=== PATIENT | female | born 1980 | race African-American/Black ===

== ENCOUNTER 2017-09-19 05:10 | Emergency (ER) | payer SELFPAY ==
[~2017-09-19] VITALS: Ht 165.1 cm; Wt 110.7 kg
[2017-09-19 05:10] VITALS: BP 139/79
[~2017-09-19 05:10] MED LIST: AMOX500C PO; CEPH500T PO; HYDR-2758 PO; HYDR-79 PO; HYDR-971 PO; IBUP800T19 PO
--- NOTE | 2017-09-19 05:13 | ED.ADGEN ---
Past History Past Medical History: No Pertinent History Past Surgical History: Tonsillectomy Smoking: Cigarettes Alcohol Use: None Drug Use: None Adult General Chief Complaint Chief Complaint ".. I got really bad dental pain,. Rt sided. my jaw..my ear.. I got this fx tooth.. and I am going to be seen at dental school..." HPI HPI Patient is a 37 year old female who presents with above hx and complaints of right lower molar pain at site of decay and fractured tooth #30. No pointing abscess. No trismus. No history immunosuppression. No history of trauma. Patient reportedly has follow-up at dental school. Patient has completed a course of Keflex . Review of Systems Review of Systems Constitutional: Denies fever or chills [] Eyes: Denies change in visual acuity, redness, or eye pain [] HENT: Denies nasal congestion or sore throat []complaints of dental pain Respiratory: Denies cough or shortness of breath [] Cardiovascular: No additional information not addressed in HPI [] GI: Denies abdominal pain, nausea, vomiting, bloody stools or diarrhea [] : Denies dysuria or hematuria [] Musculoskeletal: Denies back pain or joint pain [] Integument: Denies rash or skin lesions [] Neurologic: Denies headache, focal weakness or sensory changes [] Endocrine: Denies polyuria or polydipsia [] All other systems were reviewed and found to be within normal limits, except as documented in this note. Family History Family History Noncontributory Current Medications Current Medications Current Medications Medications (Trade) Dose Ordered Sig/Ab Start Time Stop Time Status Last Admin Dose Admin Ceftriaxone Sodium (Rocephin Im) 1 gm 1X ONCE 09/19/17 05:45 09/19/17 06:11 DC 09/19/17 05:45 1 GM Ketorolac Tromethamine (Toradol) 60 mg 1X ONCE 09/19/17 05:45 09/19/17 06:11 DC 09/19/17 05:45 60 MG Morphine Sulfate (Morphine 10mg Syringe) 10 mg 1X ONCE 09/19/17 05:45 09/19/17 06:11 DC 09/19/17 05:45 10 MG Allergies Allergies Allergies Coded Allergies Type Severity Reaction Last Updated Verified No Known Drug Allergies 01/20/15 No Physical Exam Physical Exam Constitutional: in acute distress, non-toxic appearance. [] HENT: Normocephalic, atraumatic, bilateral external ears normal, oropharynx moist, no oral exudates, nose normal. [Dental caries. Pain appears to be localized in tooth #30 Eyes: PERRLA, EOMI, conjunctiva normal, no discharge. [] Neck: Normal range of motion, no tenderness, supple, no stridor. [] Cardiovascular:Heart rate regular rhythm, no murmur [] Lungs & Thorax: Bilateral breath sounds equal at apex auscultation [] Abdomen: Bowel sounds normal, soft, no tenderness, no masses, no pulsatile masses. [] Obese. Skin: Warm, dry, no erythema, no rash. [] Back: No tenderness, no CVA tenderness. [] Extremities: No tenderness, no cyanosis, no clubbing, ROM intact, no edema. [] Neurologic: Alert and oriented X 3, normal motor function, normal sensory function, no focal deficits noted. [] Psychologic: Affect very anxious, judgement normal, mood depressed EKG EKG [] Radiology/Procedures Radiology/Procedures [] Course & Med Decision Making Course & Med Decision Making Pertinent Labs and Imaging studies reviewed. (See chart for details). Patient to keep dental follow-up. Patient to take Tylenol and ibuprofen for pain. Patient may take Vicoprofen up 4 times a day for marked pain. Patient take Keflex 500 mg 3 times a day. Patient instructed we will probably not have relief of pain until follow-up for extraction or repair of the fractured tooth 30# [] Final Impression Final Impression 1. Dental pain[]-32 2. Abscess Problems: Dragon Disclaimer Dragon Disclaimer This electronic medical record was generated, in whole or in part, using a voice recognition dictation system. YONATHAN VARGAS MD Sep 19, 2017 05:13
[2017-09-19] MEDS ORDERED: CEPH-264 PO ×2 (05:38→06:05)
[2017-09-19] MEDS ORDERED: HYDR-79 PO ×2 (05:38→06:05)
[2017-09-19] MEDS ORDERED: MORPHINE SULFATE 10 MG/ML SYRINGE. SQ ONE (05:45)
[2017-09-19] MEDS ORDERED: cefTRIAXone IM 1 GM VIAL IM ONE (05:45)
[2017-09-19] MEDS ORDERED: KETOROLAC 60 MG/2 ML VIAL. IM ONE (05:45)
== END 2017-09-19 06:00 | disposition home or self-care (01) ==
LOC: ER 05:10
DX: K04.7 Periapical abscess without sinus (principal); F17.210 Nicotine dependence, cigarettes, uncomplicated
CPT/HCPCS: 96372; 99284; J0696; J1885; J2270

== ENCOUNTER 2017-10-10 04:18 | Emergency (ER) | payer SELFPAY ==
[~2017-10-10] VITALS: Ht 165.1 cm; Wt 110.7 kg
[~2017-10-10 04:18] MED LIST changes: +CEPH-264 PO
--- NOTE | 2017-10-10 04:21 | ED.ADGEN ---
Past History Past Medical History: No Pertinent History, Anxiety Past Surgical History: Tonsillectomy Smoking: Cigarettes Alcohol Use: None Drug Use: None Adult General Chief Complaint Chief Complaint ".. I got bad dental pain.. it this one ( points to tooth 31).. I know I got to see a dentist.... but my face was hurting on that side so bad.. I thought I was getting [place] palsy again.... " HPI HPI Patient is a 37 year old female who presents with above hx and complaints of facial and dental pain. Patient localizes pain in area of teeth 30-31. Tooth 31 shows marked erosion by cavity. Does have gingivitis. No trismus. No adenopathy. No obvious pointing abscess. No history immunosuppression. Does smoke. No history of travel or specific ill contacts. Does have erosions of right and left ear where she is cleaned aggressively with Q-tips. Does have drainage of severe right ear from the aggressive cleaning. Patient seen on for pain complaint. Patient has not followed with her dentist as yet. Review of Systems Review of Systems Constitutional: Denies fever or chills [] Eyes: Denies change in visual acuity, redness, or eye pain [] HENT: Denies nasal congestion or sore throat []complaints of dental pain right mandible. Respiratory: Denies cough or shortness of breath [] Cardiovascular: No additional information not addressed in HPI [] GI: Denies abdominal pain, nausea, vomiting, bloody stools or diarrhea [] : Denies dysuria or hematuria [] Musculoskeletal: Denies back pain or joint pain [] Integument: Denies rash or skin lesions [] Neurologic: Denies headache, focal weakness or sensory changes [] Endocrine: Denies polyuria or polydipsia [] All other systems were reviewed and found to be within normal limits, except as documented in this note. Family History Family History Noncontributory Current Medications Current Medications Current Medications Medications (Trade) Dose Ordered Sig/Ab Start Time Stop Time Status Last Admin Dose Admin Cephalexin HCl (Startper Pack - Keflex 250mg) 1 startpack 1X ONCE 10/10/17 04:45 10/10/17 04:46 UNV 10/10/17 04:45 1 STARTPACK Ketorolac Tromethamine (Toradol) 60 mg 1X ONCE 10/10/17 04:45 10/10/17 04:46 UNV 10/10/17 04:45 60 MG See nursing for home meds Allergies Allergies Allergies Coded Allergies Type Severity Reaction Last Updated Verified No Known Drug Allergies 01/20/15 No Physical Exam Physical Exam Constitutional: Moderately acute distress, non-toxic appearance. [] HENT: Normocephalic, atraumatic, bilateral external canal erosions from cleaning , TMs intact, multiple dental caries and gingivitis., oropharynx moist, no oral exudates, nose normal. []Localizes pain primarily in area of tooth 31. No trismus. Eyes: PERRLA, EOMI, conjunctiva normal, no discharge. [] Neck: Normal range of motion, no tenderness, supple, no stridor. [] Cardiovascular:Heart rate regular rhythm, no murmur [] Lungs & Thorax: Bilateral breath sounds equal at apexes scattered wheezes auscultation [] Abdomen: Bowel sounds normal, soft, no tenderness, no masses, no pulsatile masses. [] Obese Skin: Warm, dry, no erythema, no rash. [] Back: No tenderness, no CVA tenderness. [] Extremities: No tenderness, no cyanosis, no clubbing, ROM intact, no edema. [] Neurologic: Alert and oriented X 3, normal motor function, normal sensory function, no focal deficits noted. [] Psychologic: Affect anxious, judgement normal, mood normal. [] Current Patient Data Vital Signs Vital Signs Date Time Temp Pulse Resp B/P (MAP) Pulse Ox O2 Delivery O2 Flow Rate FiO2 10/10/17 04:33 97.9 90 20 98 Room Air Lab Results Laboratory Tests Test 10/10/17 03:45 POC Urine HCG, Qualitative hcg negative (Negative) EKG EKG [] Radiology/Procedures Radiology/Procedures [] Course & Med Decision Making Course & Med Decision Making Pertinent Labs and Imaging studies reviewed. (See chart for details). Take Keflex 500 mg 3 times a day. Tylenol and ibuprofen for pain. Must follow- up with primary care and dentist. Must see primary care to have a refill of narcotics. Do not clean ears excessively. Must follow up. Stop smoking. [] Final Impression Final Impression 1. Dental Pain[] 2. Facial pain-mandible pain right 3. Tobacco use 4. Hx [place] Palsy Dragon Disclaimer Dragon Disclaimer This electronic medical record was generated, in whole or in part, using a voice recognition dictation system. YONATHAN VARGAS MD October 10, 2017 04:21
[2017-10-10] MEDS ORDERED: CEPH-264 PO (04:27)
[2017-10-10 04:33] VITALS: BP 142/84
[2017-10-10] MEDS ORDERED: KETOROLAC 60 MG/2 ML VIAL. IM ONE ×2 (04:45→04:55)
[2017-10-10] MEDS ORDERED: CEPHALEXIN 250MG 4CAPSULE STARTPACK. PO ONE ×2 (04:45→04:55)
[2017-10-10 05:16] LABS: BARBITURATES NEG (NEG); BENZODIAZEPINES NEG (NEG); CANNABINOIDS NEG (NEG); COCAINE NEG (NEG); METHADONE NEG (NEG); OPIATES POS (NEG); PHENCYCLIDINE NEG (NEG)
[2017-10-10 06:01] LABS: AMPHETAMINE/METHAMPHETAMINE NEG (NEG)
== END 2017-10-10 04:45 | disposition home or self-care (01) ==
LOC: ER 04:18
DX: K08.89 Other specified disorders of teeth and supporting structures (principal); R51 Headache; R68.84 Jaw pain; F17.210 Nicotine dependence, cigarettes, uncomplicated; G51.0 Bell's palsy; F41.9 Anxiety disorder, unspecified
CPT/HCPCS: 36415; 80307; 81025; 96372; 99283; J1885; G0479

== ENCOUNTER 2019-05-06 20:40 | Emergency (ER) | payer SELFPAY ==
[~2019-05-06] VITALS: Ht 165.1 cm; Wt 110.7 kg
[~2019-05-06 20:40] MED LIST changes: +HYDR-1179 PO; +HYDR-2155 PO; -HYDR-2758 PO; +HYDR-3165 PO; -HYDR-79 PO; -HYDR-971 PO
--- NOTE | 2019-05-06 20:46 | PHYS DOC ---
Past History Past Medical History: No Pertinent History, Anxiety Past Surgical History: Tonsillectomy Smoking: Cigarettes Alcohol Use: None Drug Use: None Adult General Chief Complaint Chief Complaint: ".. I got some vaginal bleeding and cramping... I may be having a miscarry... I want labs.. and xrays and ultra sounds... but I don't want any exams..."..." HPI HPI Patient is a 39 year old female who presents with above hx and complaints and she thinks she is and is having a miscarriage. Patient thinks she may has not had a period for last month or 2 which is normal for her. Patient feels however she is . Patient denies any vaginal discharge. Patient denies any dysuria. Patient has used 8-10 tampons last 24-48 hours. Patient states normally she has used approximately 3 tampons per day when she is on her regular menstruation.. Periods normally last anywhere from 8-10 days. States she had one period that lasted 65 days. Patient denies any previous history of . Patient did have ovarian cyst approximately 10 years ago and had an ultrasound a t that time. Reportedly ultrasound was negative. Patient denies any abuse. Patient denies any traumatic sex. Patient last had sex 3 days ago. Patient denies any history of STDs. Patient denies any history of endometriosis. Patient denies any history of fibroids. Pt. last pelvic exam was 10 yrs. ago. Patient currently refusing any exam. Patient denies any Coagulopathy with her or family members. Patient denies any travel or specific ill contacts. Patient states if she is not she wants something to stop the periods today. Patient does not want to be having a period through the [place] holidays. Patient states she will only be examined by a female doctor. Patient denies any history of intake of bad food. Patient reportedly has had normal stools. Review of Systems Review of Systems Constitutional: Denies fever or chills [] Eyes: Denies change in visual acuity, redness, or eye pain [] HENT: Denies nasal congestion or sore throat [] Respiratory: Denies cough or shortness of breath [] Cardiovascular: No additional information not addressed in HPI [] GI: Complaints of cramp/ abdominal pain. Denies, nausea, vomiting, bloody stools or diarrhea . Patient []complaints of increase menstruation flow. : Denies dysuria or hematuria [] Musculoskeletal: Denies back pain or joint pain [] Integument: Denies rash or skin lesions [] Neurologic: Denies headache, focal weakness or sensory changes [] Endocrine: Denies polyuria or polydipsia [] All other systems were reviewed and found to be within normal limits, except as documented in this note. Family History Family History Noncontributory Current Medications Current Medications See nursing for home meds Allergies Allergies Allergies Coded Allergies Type Severity Reaction Last Updated Verified No Known Drug Allergies 01/20/15 No Physical Exam Physical Exam Constitutional: no acute distress, non-toxic appearance. [] HENT: Normocephalic, atraumatic, bilateral external ears normal, oropharynx moist, no oral exudates, nose normal. [] Eyes: PERRLA, EOMI, conjunctiva normal, no discharge. [] Neck: Normal range of motion, no tenderness, supple, no stridor. [] Cardiovascular:Heart rate regular rhythm, no murmur [] Lungs & Thorax: Bilateral breath sounds equal apex with few scattered wheezes on auscultation [] Abdomen: Bowel sounds normal, soft, no tenderness, no masses, no pulsatile masses. Obese. Patient refuses pelvic exam. No rebound pain. Skin: Warm, dry, no erythema, no rash. [] Back: No tenderness, no CVA tenderness. [] Extremities: No tenderness, no cyanosis, no clubbing, ROM intact, no edema. [] No obvious psoas sign. Patient ambulatory without problems. Neurologic: Alert and oriented X 3, normal motor function, normal sensory function, no focal deficits noted. [] Psychologic: Affect anxious and demanding,, judgement-appears to have limited insight to reproductive cycles, mood normal. [] EKG EKG [] Radiology/Procedures Radiology/Procedures [] Course & Med Decision Making Course & Med Decision Making Pertinent Labs and Imaging studies reviewed. (See chart for details) Patient encouraged to follow up with [facility] or primary care. Patient encouraged to complete a pelvic exam. Patient encouraged to continue pad / upon counts. Patient return of any concerns. Patient advised her beta-hCG was negative. And that her current hemoglobin is normal.. Patient encouraged follow-up outpatient. []Impression: 1. Dysmenorrhea 2. Not 3. Patient lacks insight to reproductive/ menstruation cycles Dragon Disclaimer Dragon Disclaimer This electronic medical record was generated, in whole or in part, using a voice recognition dictation system. Departure Departure: Disposition: 01 HOME/RESIDENCE PRIOR TO ADM Condition: STABLE Referrals: PCP,NO (PCP) [place] Disclaimer This chart was dictated in whole or in part using Voice Recognition software in a busy, high-work load, and often noisy Emergency Department environment. It may contain unintended and wholly unrecognized errors or omissions. Dragon Disclaimer This chart was dictated in whole or in part using Voice Recognition software in a busy, high-work load, and often noisy Emergency Department environment. It may contain unintended and wholly unrecognized errors or omissions. YONATHAN VARGAS MD May 06, 2019 20:46
[2019-05-06] MEDS ORDERED: IV RINGERS SOLUTION,LACTATED 1,000 ML IV SCH (21:21)
[2019-05-06 21:46] LABS: BARBITURATES NEG (NEG); BENZODIAZEPINES NEG (NEG); CANNABINOIDS NEG (NEG); COCAINE NEG (NEG); METHADONE NEG (NEG); OPIATES NEG (NEG); PHENCYCLIDINE NEG (NEG)
[2019-05-06 21:47] LABS: AMPHETAMINE/METHAMPHETAMINE NEG (NEG)
[2019-05-06 21:57] LABS: BILIRUBIN,URINE NEG (NEG); CLARITY,URINE CLEAR; COLOR,URINE YELLOW; GLUCOSE,URINE NEG (NEG); NITRITE,URINE NEG (NEG); RBC,URINE 0 /HPF (0-2); UROBILINOGEN,URINE 0.2 mg/dL (0.2 mg/dL); WBC,URINE 0 /HPF (0-4)
[2019-05-06 21:58] LABS: AMORPHOUS SEDIMENT,UR PRESENT /HPF; BACTERIA,URINE FEW /HPF (0-FEW)
[2019-05-06 22:49] LABS: BASO # 0.1 x10^3/uL (0.0-0.2); BASO % 1 % (0-3); EOS # 0.1 x10^3/uL (0.0-0.7); EOS % 1 % (0-3); HEMOGLOBIN 13.5 g/dL (12.0-15.5); LYMPH # 1.9 x10^3/uL (1.0-4.8); LYMPH % 18 % (24-48); MEAN CORPUSCULAR HEMOGLOBIN 30 pg (25-35); MEAN CORPUSCULAR HGB CONC 33 g/dL (31-37); MEAN CORPUSCULAR VOLUME 92 fL (79-100); MONO # 0.5 x10^3/uL (0.0-1.1); MONO % 5 % (0-9); NEUT # 8.2 x10^3uL (1.8-7.7); NEUT % 76 % (31-73); PLATELET COUNT 274 x10^3/uL (140-400); RED BLOOD COUNT 4.48 x10^6/uL (3.50-5.40); RED CELL DISTRIBUTION WIDTH 12.9 % (11.5-14.5); WHITE BLOOD COUNT 10.8 x10^3/uL (4.0-11.0)
[2019-05-06 23:00] LABS: ALBUMIN 3.8 g/dL (3.4-5.0); CALCIUM 9.1 mg/dL (8.5-10.1); DIRECT BILIRUBIN 0.1 mg/dL (0.0-0.2); GFR 75.1; TOTAL BILIRUBIN 0.5 mg/dL (0.2-1.0); TOTAL PROTEIN 8.3 g/dL (6.4-8.2)
[2019-05-06 23:55] VITALS: BP 133/73
== END 2019-05-07 00:01 | disposition home or self-care (01) ==
LOC: ER 20:40
DX: N94.6 Dysmenorrhea, unspecified (principal); F17.210 Nicotine dependence, cigarettes, uncomplicated; F41.9 Anxiety disorder, unspecified
CPT/HCPCS: 36415; 80048; 80076; 80307; 81001; 81025; 83690; 84443; 84702; 85025; 85610; 85730; 86900; 86901; 99284; J7120

== ENCOUNTER 2021-09-18 17:57 | Emergency (ER) | payer BC ==
[~2021-09-18] VITALS: Ht 165.1 cm; Wt 115.5 kg
[2021-09-18 18:22] VITALS: BP 144/63
[2021-09-18] MEDS ORDERED: BUPRENORPHINE 2 MG SL ONE (18:30)
[2021-09-18] MEDS ORDERED: ONDANSETRON ODT 4 MG TAB.RAPDIS PO ONE (18:30)
[2021-09-18] MEDS ORDERED: OXYC1TAB19 PO (18:38)
[2021-09-18] MEDS ORDERED: ONDA4TAB12 PO (18:38)
--- NOTE | 2021-09-18 18:40 | PHYS DOC ---
Past History Past Medical History: Anxiety, Ovarian Cyst Additional Past Medical Histor: PCOS Past Surgical History: No Surgical History, Tonsillectomy Smoking: Cigarettes Alcohol Use: None Drug Use: None General Adult EDM: Chief Complaint: WITHDRAWAL HPI: HPI: Patient is a 41-year-old female coming in for withdrawal. Patient has been on Suboxone for the past 8 months and states that she left them walk to her car and another city is [place] to get to [place]. She states she called her primary care provider who has been prescribing it and they ended up calling her out naltrexone, clonidine, and Vistaril. Patient states she took the naltrexone and started having comfort, chills with goosebumps, nausea, vomiting and diarrhea. Patient tried taking some Benadryl to help her go to sleep but it does not work. Review of Systems: Review of Systems: All other systems within normal limits except for as noted in the HPI Current Medications: Current Meds: Current Medications Medications (Trade) Dose Ordered Sig/Ab Start Time Stop Time Status Last Admin Dose Admin Buprenorphine HCl (Subutex) 8 mg 1X ONCE 09/18/21 18:30 09/18/21 18:31 UNV Ondansetron HCl (Zofran Odt) 4 mg 1X ONCE 09/18/21 18:30 09/18/21 18:32 DC Allergies: Allergies: Allergies Coded Allergies Type Severity Reaction Last Updated Verified No Known Drug Allergies 01/20/15 No Physical Exam: PE: Constitutional: Well developed, well nourished, no acute distress, non-toxic appearance. [] HENT: Normocephalic, atraumatic, bilateral external ears normal, nose normal. [] Eyes: PERRLA, conjunctiva normal, no discharge. [] Neck: No rigidity, supple, no stridor. [] Cardiovascular: Regular rate and rhythm, brisk cap refill [] Lungs & Thorax: Non labored symmetric respirations, no tachypnea or respiratory distress [] Abdomen: Soft, nondistended. Skin: Warm, dry, no erythema, no rash. [] Back: Unremarkable Extremities: No deformities, range of motion grossly intact, no lower extremity edema [] Neurologic: Alert and oriented X 3, no focal deficits noted. [] Psychologic: Affect normal, judgement normal, mood normal. [] Current Patient Data: Vital Signs: Vital Signs Date Time Temp Pulse Resp B/P (MAP) Pulse Ox O2 Delivery O2 Flow Rate FiO2 09/18/21 18:22 98.2 110 20 144/63 (90) 96 Room Air EKG: EKG: [] Radiology/Procedures: Radiology/Procedures: [] Heart Score: C/O Chest Pain: No Risk Factors: Risk Factors: DM, Current or recent (<one month) smoker, HTN, HLP, family history of CAD, obesity. Risk Scores: Score 0 - 3: 2.5% MACE over next 6 weeks - Discharge Home Score 4 - 6: 20.3% MACE over next 6 weeks - Admit for Clinical Observation Score 7 - 10: 72.7% MACE over next 6 weeks - Early Invasive Strategies Course & Med Decision Making: Course & Med Decision Making Suboxone not covering her formulary. Discussed treatment with opioids and Zofran to help with symptoms to call her primary care provider in the morning, since I do not carry a X waiver to prescribe Suboxone. Chepe Disclaimer: [place]pe Disclaimer: This electronic medical record was generated, in whole or in part, using a voice recognition dictation system. Departure Departure: Impression: Primary Impression: Adverse effect of bupropion Disposition: 01 HOME / SELF CARE / HOMELESS Condition: STABLE Referrals: YAMILETH OSORIO PAC (PCP) Patient Instructions: Narcotic Withdrawal-Brief Scripts Oxycodone Hcl/Acetaminophen (PERCOCET 7.5-325 MG TABLET ) 1 Each Tablet 1 TAB PO PRN Q6HRS PRN for PAIN for 2 Days, #6 TAB Prov: DILLAN ALLEN MD 09/18/21 Ondansetron (ONDANSETRON ODT) 4 Mg Tab.rapdis 1 TAB PO PRN Q6-8HRS PRN for NAUSEA, #8 TAB Prov: DILLAN ALELN MD 09/18/21 DILLAN ALLEN MD Sep 18, 2021 18:40
== END 2021-09-18 19:00 | disposition home or self-care (01) ==
LOC: ER 17:57
DX: R11.2 Nausea with vomiting, unspecified (principal); R19.7 Diarrhea, unspecified; T43.295A Adverse effect of other antidepressants, initial encounter; F41.9 Anxiety disorder, unspecified; F17.210 Nicotine dependence, cigarettes, uncomplicated; Y92.89 Other specified places as the place of occurrence of the external cause
CPT/HCPCS: 99283; Q0162